=== PATIENT | male | born 2000 | race Caucasian/White ===

== ENCOUNTER 2020-07-05 06:32 | Inpatient (IN) | payer OTHER, SELFPAY ==
[2020-07-05] VITALS (7 sets, daily range): BP systolic 120–139; BP diastolic 86–94; PULSE 48–112; RESP 16–18; TEMP 36.3–37.1; O2SAT 98–100; BMI 25.0
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
--- NOTE | 2020-07-05 06:55 | XRR_ITS ---
PROCEDURE INFORMATION: Exam: XR Chest, 1 View Exam date and time: 07/05/2020 7:17 AM Age: 19 years old Clinical indication: Cough and dyspnea; Additional info: Dyspnea/cough TECHNIQUE: Imaging protocol: XR of the chest Views: 1 view. COMPARISON: No relevant prior studies available. FINDINGS: Lungs: Unremarkable. No consolidation. Pleural space: Unremarkable. No pleural effusion. No pneumothorax. Heart/Mediastinum: Unremarkable. No cardiomegaly. Bones/joints: Unremarkable. XR/XR chest 1V portable [id number] IMPRESSION: No acute findings.
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
[2020-07-05] MEDS: LORazepam 2 mg/mL INJ 1 mL IM (07:40)
[2020-07-05 07:53] LABS: Basophils # 0.1 10^3/uL (0.0-0.1); Basophils % 0.3 %; Eosinophils % 0.1 %; Hematocrit 43.9 % (42.0-52.0); Hemoglobin 14.9 g/dL (11.7-16.6); Lymphocytes # 1.8 10^3/uL (1.5-6.5); Lymphocytes % 10.5 %; Mean Corpuscular HGB Conc 33.9 g/dL (30.0-36.0); Mean Corpuscular Hemoglobin 28.9 pg (28.0-34.0); Mean Corpuscular Volume 85.2 fL (80-94); Mean Platelet Volume 9.4 fL (7.4-10.4); Monocytes # 1.1 10^3/uL (0.2-0.9); Monocytes % 6.6 %; Neutrophils # 13.92 10^3/uL (1.8-8.0); Neutrophils % 81.7 %; Nucleated Red Blood Cells % 0 %; Platelet Count 316 10^3/cmm (130-400); Red Blood Count 5.15 10^6/uL (4.1-5.3); Red Cell Distribution Width 13.4 % (12.1-15.1); White Blood Count 17.1 10^3/uL (4.5-13.0)
[2020-07-05 08:20] LABS: Alanine Aminotransferase 18 U/L (0-41); Albumin Level 5.3 g/dL (3.5-5.2); Alkaline Phosphatase 81 IU/L (40-130); Anion Gap 26.9 (5-19); Aspartate Amino Transferase 23 U/L (0-40); Blood Urea Nitrogen 9 mg/dL (6-20); Calcium 10.1 mg/dL (8.5-10.5); Carbon Dioxide 19 mmol/L (22-29); Chloride 101 mmol/L (98-107); Globulin 2.8 g/dL (1.3-4.6); Glomerular Filtration Rate 173.6 mL/min (90-130); Glucose 85 mg/dL (65-115); Osmolality Calculated 294 mOsm/kg (285-295); Potassium 3.9 mmol/L (3.5-5.1); Sodium 143 mmol/L (136-145); Total Bilirubin 0.8 mg/dL (0.15-1.2); Total Protein 8.1 g/dL (6.6-8.7)
[2020-07-05 08:25] LABS: Acetaminophen < 5.0 ug/mL (10-30); Alcohol Level < 10 mg/dL (0-10); Salicylate < 0.3 mg/dL (3-10)
[2020-07-05 10:31] LABS: Add Urine Microscopic? NO
[2020-07-05 10:35] LABS: Bilirubin Urine Neg (Negative); Blood Urine Neg (Negative); Glucose Urine UA Norm (Normal); Ketones Urine 3+ (Negative); Leukocyte Esterase Urine Negative (Negative); Nitrate Urine Negative (Negative); Protein Urine Neg (Negative); Urine Appearance Clear (CLEAR); Urine Color Yellow (Yellow); Urobilinogen Urine Norm (Negative)
[2020-07-05 11:05] LABS: Amphetamines Screen Urine Negative (Negative); Barbiturates Screen Urine Negative (Negative); Benzodiazepines Screen Urine Negative (Negative); Cocaine Screen Urine Negative (Negative); Opiate Screen Urine Negative (Negative); PCP Screen Urine Negative (Negative); THC Screen Urine Positive (Negative)
--- NOTE | 2020-07-05 11:50 | PC.NURSE ---
INFLUENZA VACCINE GIVEN IM IN LEFT DELTOID LOT [id number] EXP 03/21/21
--- NOTE | 2020-07-05 13:21 | NPU.GN ---
Les did not attend group this afternoon.
--- NOTE | 2020-07-05 18:45 | PC.NURSE ---
PATIENT BEING INTRUSIVE, FOLLOWING A FEMALE PATIENT DOWN TO HER ROOM, FOR BIBLE STUDY, EASILY REDIRECTED OUT OF ROOM. ALSO NOTED BY PHYSICIAN TO BE PUTTING HIS HANDS ON OTHER MALE PATIENTS IN ATTEMPT TO MASSAGE THEM. TO BE MOVED TO A PRIVATE ROOM WHEN OPEN. WILL CONT TO MONITOR, SUPPORT AND REDIRECT NEEDED
--- NOTE | 2020-07-06 02:27 | PC.NURSE ---
Patient has been pacing the babin since around 1999. He refused PRN medications when offered ( three times ) throughout the evening / morning. Patient approached me stating I'm ready to go , I asked where, he answered for the lord to take me Patient has been gripping bible and mumbling to his self near continually. Patient was finally willing to take PRN Zyprexa and Vistaril.
[2020-07-06] MEDS: hyDROXYzine 25 mg Capsule 50 MG PO ×2 (02:37→22:23)
[2020-07-06] MEDS: OLANZapine 5 mg ODT PO ×2 (02:40→22:23)
--- NOTE | 2020-07-06 02:50 | PC.NURSE ---
Patient needed to be redirected to take a shower. He was not able to complete the activity without help. He is often unsure of where he is or what he needs to be doing. He prays often, paces the babin, and does not sleep. He received Visteril and Zyprexa Zydis this evening but it is not slowing him down at all.
[2020-07-06 06:00] VITALS: RESP 16
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
[2020-07-06 14:00] VITALS: BP 112/72; PULSE 63; RESP 18; TEMP 36.8; O2SAT 98
[2020-07-06] MEDS: LORazepam 2 mg/mL INJ 1 mL IM (16:00)
--- NOTE | 2020-07-06 16:01 | PC.NURSE ---
PRN ATIVAN 2 MG GIVEN PO PER PT C/O STATED ANXIETY. PT PACING UNIT, DIFFICULT TO BE REDIRECTED. PT ATTEMPTS TO GO INTO FEMALES ROOM, STAFF HAS TO REDIRECT OFTEN. PT TEARFUL IN ROOM TALKING ABOUT HIS FAMILY. WILL CONT TO MONITOR
[2020-07-06 22:00] VITALS: BP 150/109; PULSE 120; RESP 19; TEMP 37.1; O2SAT 97
[2020-07-06] MEDS: trazodone 50 mg Tablet PO (22:24)
[2020-07-07 06:00] VITALS: BP 150/109; PULSE 120; RESP 19; TEMP 37.1; O2SAT 97
[2020-07-07 06:12] VITALS: RESP 16
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
[2020-07-07] MEDS: ARIPiprazole 10 mg Tablet PO (12:50)
--- NOTE | 2020-07-07 13:06 | P.PN_ITS ---
Subjective NPU Subjective: Interval history: Les presented today with continued challenges with his psychosis. He continued to be very religiously preoccupied. Concepts of love, guilt forgiveness, and punishment are all very prevalent in his thinking. At one point during the day he fell intentionally but did not catch himself and smashed his face against the floor including his glasses which were already damaged that were broken. Initially significant concern for some event existed however he was clear that he fell and allowed himself to hit the ground without protection as punishment for his sense. Afterwards he was open to a trial of Abilify after we discussed the risks, benefits and alternatives and he appeared to understand and agreed to proceed as is documented in this note. Mental Status Exam MSE Comments: This is a well-nourished, well-developed, white male, in a hospital gown, with red hair and smith, with adequate grooming and eye contact. No abnormal movements, except for mild psychomotor retardation. Cooperative with exam in occasional or intermittent distress. Speech was decreased rate and volume, speaking very softly and, at times, intensely without clear indication of why. Mood described as sad; affect subdued and labile. Thought process, mostly organized. Thought content: patient denied any suicidal or homicidal ideation; he did endorse paranoia and significant hyper zoroastrianism delusions were noted; he endorsed auditory or visual hallucinations, but did not appear to be attending to internal stimuli. Attention and concentration appeared mostly intact, and memory was unreliable, but none were formally tested. He is alert and oriented times person and place. Insight and judgment are impaired. Impulse control is is impaired. 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 Continue current medication. Would encourage an antipsychotic, and will continue to offer. Encourage individual, group, and milieu therapy. Continue q-[address] minute checks for safety[address] CT of head for witnessed fall was unremarkable. Recommend sober living treatment at the highest level of care to which the patient is willing to commit. We will evaluate for appropriateness for discharge, given the 96-hour hold, but currently it looks like he may be someone that we need to do a 21-day hold for. Involuntary Hold Information 96 Hour Hold: 96 Hour Involuntary Admission: Yes 96 Hour Hold Ending Date: 07/11/20 96 Hour Hold Ending Time: 07:00 Attestations NPU Medical Necessity Statement*: Inpatient hospitalization is medically necessary and the clinically appropriate intervention, at this time. We will monitor medications and make changes as indicated. Likely length of stay is four to six days. Coding Level of Care Code Acute Slot Key Person for Carmen Lester
[2020-07-07 14:00] VITALS: BP 113/69; PULSE 95; RESP 20; TEMP 36.7; O2SAT 100
[2020-07-07] MEDS: trazodone 50 mg Tablet PO (21:21)
[2020-07-07] MEDS: hyDROXYzine 25 mg Capsule 50 MG PO (21:21)
[2020-07-07 21:22] VITALS: BP 134/82; PULSE 119; RESP 19; TEMP 37.1; O2SAT 98
--- NOTE | 2020-07-07 21:22 | PC.NURSE ---
PRN TRAZODONE & VISTARIL ADMINISTERED TRAZODONE 50MG PO & VISTARIL 50 MG PO PER PT REQUEST. WILL MONITOR FOR MEDICATION EFFECTIVENESS.
--- NOTE | 2020-07-07 21:25 | PC.NURSE ---
Addendum entered by Latonya Singh RN 07/07/20 22:21: Notified Dr. Hernandez, Called NPU Carton Filling Machine Operator Manolo Gastelum, and shift Typesetting Machine Operator/Tender Basia Thao, rescored patient fall risk outcome is 40. Staff appropriate for census of 14. senior sales manager is Edward this evening. completed fall paperwork and initiated an incident report. No visible patient injury. Original Note: Pt fell in the shower. No cuts or visible redness on his skin. Pt stated that he is not having pain anywhere but don't know why he fell. Floor was wet.
[2020-07-08] MEDS: OLANZapine 5 mg ODT PO ×2 (01:21→16:07)
[2020-07-08 06:00] VITALS: BP 151/92; PULSE 96; RESP 14; TEMP 36.7; O2SAT 100
[2020-07-08] MEDS: ARIPiprazole 10 mg Tablet PO (09:22)
[2020-07-08 14:00] VITALS: BP 131/72; PULSE 72; RESP 18; TEMP 36.7; O2SAT 96
--- NOTE | 2020-07-08 14:06 | P.PN_ITS ---
Subjective NPU Subjective: Interval history: Les presented today reporting that he is feeling better. However he continues to be quite engrossed in his spiritual thinking being moved to Sherine or tears very easily. He was continuing his impulsive behavior with attempts to get into the nursing station and escape the unit noted throughout the day. This is with a one-to-one sitter trying to dis tract him as well. Mental Status Exam MSE Comments: This is a well-nourished, well-developed, white male, in a hospital gown, with red hair and smith, with adequate grooming and eye contact. No abnormal movements, except for mild psychomotor retardation. Cooperative with exam in occasional or intermittent distress. Speech was decreased rate and volume, speaking very softly and, at times, intensely without clear indication of why. Mood described as OK; affect subdued and labile. Thought process, mostly organized. Thought content: patient denied any suicidal or homicidal ideation; he did endorse paranoia and significant hyper adventist delusions were noted; he endorsed auditory or visual hallucinations, but did not appear to be attending to internal stimuli. Attention and concentration appeared mostly intact, and memory was unreliable, but none were formally tested. He is alert and oriented times person and place. Insight and judgment are impaired. Impulse control is is impaired. Vitals/I&O/Wt Last Vital Signs Temp 99.0 F 07/08/20 21:46 Pulse 94 07/08/20 21:46 Resp 19 H 07/08/20 21:46 BP 128/86 07/08/20 21:46 Pulse Ox 98 07/08/20 21:46 Data NPU : 07/05/20 07:46 07/05/20 07:46 A&P Additional A&P Information (1) Suicidal behavior with attempted self-injury: (2) Acute psychosis: (3) Drug-induced psychotic disorder: (4) No significant past medical history: This is an almost 20 year old, white male, with clear hyper adventist psychosis, question of possible manic euphoria, who presents not interested in medication, not believing anything is wrong with him, on a 96-hour hold. Continue current medication. He tolerated the 10 mg of Abilify we will increase to 20 mg p.o. every morning tomorrow. Encourage individual, group, and milieu therapy. Continue q-15 minute checks for safety. CT of head for witnessed fall was unremarkable. Recommend sober living treatment at the highest level of care to which the patient is willing to commit. We will evaluate for appropriateness for discharge, given the 96-hour hold, but currently it looks like he may be someone that we need to do a 21-day hold for. Involuntary Hold Information 96 Hour Hold: 96 Hour Involuntary Admission: Yes 96 Hour Hold Ending Date: 07/11/20 96 Hour Hold Ending Time: 07:00 Attestations NPU Medical Necessity Statement*: Inpatient hospitalization is medically necessary and the clinically appropriate intervention, at this time. We will monitor medications and make changes as indicated. Likely length of stay is four to six days Coding Level of Care Code Acute Sleeve Presser Operator for Carmen Lester
--- NOTE | 2020-07-08 16:09 | PC.NURSE ---
PRN Zyprexa Zydis Patient becoming agitated when he is being redirected from entering other patients rooms. Given Zyprexa Zydis PO.
[2020-07-08] MEDS: hyDROXYzine 25 mg Capsule 50 MG PO (21:10)
[2020-07-08] MEDS: trazodone 50 mg Tablet PO (21:10)
--- NOTE | 2020-07-08 21:11 | PC.NURSE ---
PRN TRAZODONE & VISTARIL ADMINISTERED TRAZODONE 50MG PO & VISTARIL 50 MG PO PER PT REQUEST. WILL MONITOR FOR MEDICATION EFFECTIVENESS.
[2020-07-08 21:46] VITALS: BP 128/86; PULSE 94; RESP 19; TEMP 37.2; O2SAT 98
[2020-07-09 06:00] VITALS: BP 134/89; PULSE 86; RESP 15; TEMP 36.9; O2SAT 97
[2020-07-09] MEDS: ARIPiprazole 10 mg Tablet 20 MG PO (08:50)
[2020-07-09] MEDS: ziprasidone 20 mg/mL SDV 5 MG IM (10:13)
--- NOTE | 2020-07-09 10:14 | PC.NURSE ---
PRN GEODON Patient becoming aggressive when trying to redirect from going into nurses station. Given 5 mg GEODON IM.
--- NOTE | 2020-07-09 12:17 | PM.NPN ---
Subjective NPU Subjective: Interval history: Les presents today continuing to be hyper jehovah's witness and focused on repentance and being thankful and striving to be aware of the magnitude of his sinning. He continues to be on one-to-one with his falls this weekend. He denied any side effects to Abilify. We discussed the risks, benefits and alternatives of considering a possible increase tomorrow, and he understood and agreed that he did not in this note. He reported saying prayers of thankfulness in between bites at his meals. Mental Status Exam MSE Comments: This is a well-nourished, well-developed, white male, in a hospital gown, with red hair and smith, with adequate grooming and eye contact. No abnormal movements, except for mild psychomotor retardation. Cooperative with exam in occasional or intermittent distress. Speech was decreased rate and volume, speaking very softly and, at times, intensely without clear indication of why. Mood described as last; affect subdued and slightly less labile. Thought process, mostly organized. Thought content: patient denied any suicidal or homicidal ideation; he did endorse paranoia and significant hyper jehovah's witness delusions were noted; he endorsed auditory or visual hallucinations, but did not appear to be attending to internal stimuli. Attention and concentration appeared mostly intact, and memory was unreliable, but none were formally tested. He is alert and oriented times person and place. Insight and judgment are impaired. Impulse control is is impaired. Vitals/I&O/Wt Last Vital Signs Temp 98.3 F 07/09/20 22:00 Pulse 101 H 07/09/20 22:00 Resp 18 07/09/20 22:00 BP 143/62 07/09/20 22:00 Pulse Ox 98 07/09/20 22:00 Weight last 48 hrs Weight 72.575 kg Data NPU : 07/05/20 07:46 07/05/20 07:46 A&P Additional A&P Information (1) Suicidal behavior with attempted self-injury: (2) Acute psychosis: (3) Drug-induced psychotic disorder: (4) No significant past medical history: This is an almost 20 year old, white male, with clear hyper jehovah's witness psychosis, question of possible manic euphoria, who presents not interested in medication, not believing anything is wrong with him, on a 96-hour hold. Continue current medication. Except for Abilify 20 mg p.o. every morning Encourage individual, group, and milieu therapy. Continue q-15 minute checks for safety. CT of head for witnessed fall was unremarkable. Recommend sober living treatment at the highest level of care to which the patient is willing to commit. We will evaluate for appropriateness for discharge, given the 96-hour hold, but currently it looks like he may be someone that we need to do a 21-day hold for. Involuntary Hold Information 96 Hour Hold: 96 Hour Involuntary Admission: Yes 96 Hour Hold Ending Date: 07/11/20 96 Hour Hold Ending Time: 07:00 Attestations NPU Medical Necessity Statement*: Inpatient hospitalization is medically necessary and the clinically appropriate intervention, at this time. We will monitor medications and make changes as indicated. Likely length of stay is four to six days Coding Level of Care Code Acute Power Project Manager for Carmen Lester
[2020-07-09] MEDS: OLANZapine 5 mg ODT PO (13:56)
--- NOTE | 2020-07-09 13:57 | PC.NURSE ---
PRN Zyprexa Zydis Patient continues to be defiant about staying out of patients rooms and nurses desk. Given 5 mg Zyprexa Zydis PO.
[2020-07-09 14:00] VITALS: BP 128/87; PULSE 98; RESP 18; TEMP 36.5; O2SAT 100
[2020-07-09] MEDS: hyDROXYzine 25 mg Capsule 50 MG PO (21:04)
[2020-07-09] MEDS: trazodone 50 mg Tablet PO (21:04)
[2020-07-09 22:00] VITALS: BP 143/62; PULSE 101; RESP 18; TEMP 36.8; O2SAT 98
[2020-07-10] MEDS: haloperidol 5 mg Tablet PO (02:03)
[2020-07-10 06:00] VITALS: BP 150/88; PULSE 62; RESP 15; TEMP 36.7; O2SAT 98
[2020-07-10] MEDS: ARIPiprazole 10 mg Tablet 20 MG PO (08:37)
[2020-07-10 14:23] VITALS: BP 134/84; PULSE 71; RESP 18; TEMP 36.8; O2SAT 99
--- NOTE | 2020-07-10 17:22 | P.PN_ITS ---
Subjective NPU Subjective: Interval history: Les continues to have difficulties with impulse control. He seems to be less labile in his general interactions. Parents were present today and we discussed plan to start and the fact that they are going to make sure he has more support possibly going to stay with mom. We discussed the fact that this may allow us to discharge him a little earlier with that understanding. That being said we discussed a 21-day hold it was applied for today. He seemed have more peace on the unit with his parents presence. Mental Status Exam MSE Comments: This is a well-nourished, well-developed, white male, in a hospital gown, with red hair and smith, with adequate grooming and eye contact. No abnormal movements, except for mild psychomotor retardation. Cooperative with exam in occasional or intermittent distress. Speech was decreased rate and volume, speaking very softly. Mood described as a little better; affect subdued and slightly less labile. Thought process, mostly organized. Thought content: patient denied any suicidal or homicidal ideation; he did endorse paranoia and significant hyper lutheran delusions were noted; he endorsed auditory or visual hallucinations, but did not appear to be attending to internal stimuli. Attention and concentration appeared mostly intact, and memory was unreliable, but none were formally tested. He is alert and oriented times person and place. Insight and judgment are impaired, but slowly improving. Impulse control is is impaired. Vitals/I&O/Wt Last Vital Signs Temp 98.2 F 07/10/20 14:23 Pulse 71 07/10/20 14:23 Resp 18 07/10/20 14:23 BP 134/84 07/10/20 14:23 Pulse Ox 99 07/10/20 14:23 Weight last 48 hrs Weight 72.575 kg Data NPU : 07/05/20 07:46 07/05/20 07:46 A&P Additional A&P Information (1) Suicidal behavior with attempted self-injury: (2) Acute psychosis: (3) Drug-induced psychotic disorder: (4) No significant past medical history: This is an almost 20 year old, white male, with clear hyper lutheran psychosis, question of possible manic euphoria, who presents not interested in medication, not believing anything is wrong with him, on a 96-hour hold. Continue current medication. Encourage individual, group, and milieu therapy. Continue q-15 minute checks for safety. Recommend sober living treatment at the highest level of care to which the patient is willing to commit. 21-day paperwork filed. Involuntary Hold Information 96 Hour Hold: 96 Hour Involuntary Admission: Yes 96 Hour Hold Ending Date: 07/11/20 96 Hour Hold Ending Time: 07:00 Attestations NPU Medical Necessity Statement*: Inpatient hospitalization is medically necessary and the clinically appropriate intervention, at this time. We will monitor medications and make changes as indicated. Likely length of stay is 4-6 days Coding Level of Care Code Acute Curriculum Consultant for Carmen Lester
[2020-07-10 20:06] LABS: Magnesium 2.5 mg/dL (1.7-2.2); Thyroid Stimulating Hormone 1.28 uIU/mL (0.27-4.20)
[2020-07-10 20:26] LABS: Erythrocyte Sedimentation Rate 7 mm/hr (0-10)
[2020-07-10] MEDS: trazodone 50 mg Tablet PO (21:40)
[2020-07-10] MEDS: OLANZapine 5 mg ODT PO (21:40)
[2020-07-10] MEDS: hyDROXYzine 25 mg Capsule 50 MG PO (21:40)
[2020-07-10 22:00] VITALS: BP 120/80; PULSE 80; RESP 19; TEMP 36.4; O2SAT 99
[2020-07-11 06:00] VITALS: BP 118/81; PULSE 65; RESP 15; TEMP 36.6; O2SAT 98
[2020-07-11] MEDS: ARIPiprazole 10 mg Tablet 20 MG PO (07:46)
[2020-07-11 14:00] VITALS: BP 127/81; PULSE 87; RESP 18; TEMP 36.7; O2SAT 99
--- NOTE | 2020-07-11 15:36 | PM.NPN ---
Subjective NPU Subjective: Interval history: Les presents today continuing to show little to no insight into his behavior surrounding his hyper pentecostal delusional choices. He seems to be gaining some impulse control but continues to attempt to go out of doors when they open with no warning, try to get into the nursing station and continues to pray and strike prayer positions extremely frequently. He continues to take the medication. We discussed the risk benefits and alternatives of considering an additional antipsychotic and he understood and agreed to proceed as documented in his note. Mental Status Exam MSE Comments: This is a well-nourished, well-developed, white male, in a hospital gown, with red hair and smith, with adequate grooming and eye contact. No abnormal movements, except for mild psychomotor retardation. Cooperative with exam in occasional or intermittent distress. Speech was decreased rate and volume, speaking very softly. Mood described as better; affect subdued and less labile. Thought process, mostly organized. Thought content: patient denied any suicidal or homicidal ideation; he did endorse paranoia and significant hyper pentecostal delusions were noted; he endorsed auditory or visual hallucinations, but did not appear to be attending to internal stimuli. Attention and concentration appeared mostly intact, and memory was unreliable, but none were formally tested. He is alert and oriented times person and place. Insight and judgment are impaired, but slowly improving. Impulse control is is impaired. Vitals/I&O/Wt Last Vital Signs Temp 98.1 F 07/11/20 14:00 Pulse 87 07/11/20 14:00 Resp 18 07/11/20 21:26 BP 127/81 07/11/20 14:00 Pulse Ox 99 07/11/20 14:00 Data NPU : 07/05/20 07:46 07/05/20 07:46 A&P Additional A&P Information (1) Suicidal behavior with attempted self-injury: (2) Acute psychosis: (3) Drug-induced psychotic disorder: (4) No significant past medical history: This is an almost 20 year old, white male, with clear hyper pentecostal psychosis, question of possible manic euphoria, who presents not interested in medication, not believing anything is wrong with him, on a 96-hour hold. Continue current medication. We will consider lithium or Invega tomorrow. Encourage individual, group, and milieu therapy. Continue q-15 minute checks for safety. Recommend sober living treatment at the highest level of care to which the patient is willing to commit. 21-day hold hearing tomorrow. Involuntary Hold Information 96 Hour Hold: 96 Hour Involuntary Admission: Yes 96 Hour Hold Ending Date: 07/11/20 96 Hour Hold Ending Time: 07:00 Attestations NPU Medical Necessity Statement*: Inpatient hospitalization is medically necessary and the clinically appropriate intervention, at this time. We will monitor medications and make changes as indicated. Likely length of stay is 4-6 days Coding Level of Care Code Acute Casting House Laborer for Carmen Lester
[2020-07-11] MEDS: hyDROXYzine 25 mg Capsule 50 MG PO (20:30)
[2020-07-11] MEDS: haloperidol 5 mg Tablet PO (20:30)
[2020-07-11] MEDS: trazodone 50 mg Tablet PO (20:31)
[2020-07-11 21:26] VITALS: RESP 18
--- NOTE | 2020-07-11 23:47 | NUR.SHIFT ---
Pt is resting in his room at 1900. When assessed this evening, breath sounds/heart sounds normal. He did get up to eat a snack in the dayroom. He returned to his room this evening. He is less intrusive, easier to direct, and seems to be better today than last week when I last saw him. pt reports [facility] telling him to do better , get the help you need. , He does not need a 1:1 sitter this evening. He has been pleasant and easy to talk to this evening. He is currently resting in his bed.
[2020-07-12 06:00] VITALS: BP 102/68; PULSE 97; RESP 16; TEMP 36.7; O2SAT 99
[2020-07-12] MEDS: ARIPiprazole 10 mg Tablet 20 MG PO (08:03)
[2020-07-12 14:00] VITALS: BP 126/79; PULSE 95; RESP 18; TEMP 37; O2SAT 99
--- NOTE | 2020-07-12 16:14 | P.PN_ITS ---
Subjective NPU Subjective: Interval history: Les presents today somewhat frustrated that he cannot go home but somewhat able to identify that there could be some benefit to staying in the hospital. His parents continue to visit daily. He feels and notes that he is doing better which is accurate and that he is showing some improvement, however he is showing limited insight into the seriousness of his delusions and the reality that this intense christian epiphany is a representation of his psychotic symptoms and not his normal thinking pattern. He is eating a little better and sleeping fine. Mental Status Exam MSE Comments: This is a well-nourished, well-developed, white male, in a hosp ital gown, with red hair and smith, with adequate grooming and eye contact. No abnormal movements, except for mild psychomotor retardation. Cooperative with exam in occasional or intermittent distress. Speech was decreased rate and volume, speaking very softly. Mood described as pretty good; affect subdued and less labile. Thought process, mostly organized. Thought content: patient denied any suicidal or homicidal ideation; he did endorse paranoia and significant hyper christian delusions were noted; he endorsed auditory or visual hallucinations, but did not appear to be attending to internal stimuli. Attention and concentration appeared mostly intact, and memory was unreliable, but none were formally tested. He is alert and oriented times person and place. Insight and judgment are impaired, but slowly improving. Impulse control is is impaired. Vitals/I&O/Wt Last Vital Signs Temp 98.3 F 07/12/20 20:53 Pulse 65 07/12/20 20:53 Resp 16 07/12/20 20:53 BP 131/86 07/12/20 20:53 Pulse Ox 99 07/12/20 20:53 Data NPU : 07/05/20 07:46 07/05/20 07:46 A&P Additional A&P Information (1) Suicidal behavior with attempted self-injury: (2) Acute psychosis: (3) Drug-induced psychotic disorder: (4) No significant past medical history: This is an almost 20 year old, white male, with clear hyper christian psychosis, question of possible manic euphoria, who presents not interested in medication, not believing anything is wrong with him, on a 96-hour hold. Continue current medication. We will start Invega 6 mg p.o. daily morning. Encourage individual, group, and milieu therapy. Continue q-15 minute checks for safety. Recommend sober living treatment at the highest level of care to which the patient is willing to commit. Les was placed on a 21-day hold. Involuntary Hold Information 96 Hour Hold: 96 Hour Involuntary Admission: Yes 96 Hour Hold Ending Date: 07/11/20 96 Hour Hold Ending Time: 07:00 Attestations NPU Medical Necessity Statement*: Inpatient hospitalization is medically necessary and the clinically appropriate intervention, at this time. We will monitor medications and make changes as indicated. Likely length of stay is 7-10 days. He is on a 21-day hold. Coding Level of Care Code Acute Mechanical Product Engineer for Carmen Lester
[2020-07-12 20:53] VITALS: BP 131/86; PULSE 65; RESP 16; TEMP 36.8; O2SAT 99
[2020-07-12] MEDS: hyDROXYzine 25 mg Capsule 50 MG PO (21:39)
[2020-07-12] MEDS: trazodone 50 mg Tablet PO (21:39)
--- NOTE | 2020-07-12 21:40 | PC.NURSE ---
trazodone/visteril Pt giveb 50mg PO Trazodone for sleep given 50mg PO Visteril for anxiety will continue to monitor
[2020-07-13 06:00] VITALS: BP 99/55; PULSE 85; RESP 16; TEMP 37.1; O2SAT 99
[2020-07-13] MEDS: ARIPiprazole 10 mg Tablet 20 MG PO (08:23)
[2020-07-13] MEDS: paliperidone ER 6 mg Tablet PO (08:23)
--- NOTE | 2020-07-13 11:58 | PM.NPN ---
Subjective NPU Subjective: Interval history: Les presents today continuing to be focused on discharge. Endorsing a desire to get out sooner rather than later. He continues to have jehovah's witness preoccupation. He is less peripheral but still making comments about saving souls and believing he was then placed in a certain room on the unit to save someone soul. Mental Status Exam MSE Comments: This is a well-nourished, well-developed, white male, in a hospital gown, with red hair and smith, with adequate grooming and eye contact. No abnormal movements, except for mild psychomotor retardation. Cooperative with exam in occasional distress. Speech was decreased rate and volume, speaking very softly. Mood described as pretty good; affect subdued and less labile. Thought process, mostly organized. Thought content: patient denied any suicidal or homicidal ideation; he did endorse paranoia and significant hyper jehovah's witness delusions were noted; he endorsed auditory or visual hallucinations, but did not appear to be attending to internal stimuli. Attention and concentration appeared mostly intact, and memory was unreliable, but none were formally tested. He is alert and oriented times person and place. Insight and judgment are impaired, but slowly improving. Impulse control is is impaired. Vitals/I&O/Wt Last Vital Signs Temp 98.8 F 07/13/20 06:00 Pulse 85 07/13/20 06:00 Resp 16 07/13/20 06:00 BP 99/55 07/13/20 06:00 Pulse Ox 99 07/13/20 06:00 Data NPU : 07/05/20 07:46 07/05/20 07:46 A&P Additional A&P Information (1) Suicidal behavior with attempted self-injury: (2) Acute psychosis: (3) Drug-induced psychotic disorder: (4) No significant past medical history: This is an almost 20 year old, white male, with clear hyper jehovah's witness psychosis, question of possible manic euphoria, who presents not interested in medication, not believing anything is wrong with him, on a 96-hour hold. Continue current medication. Encourage individual, group, and milieu therapy. Continue q-15 minute checks for safety. Recommend sober living treatment at the highest level of care to which the patient is willing to commit. Les was placed on a 21-day hold. Involuntary Hold Information 96 Hour Hold: 96 Hour Involuntary Admission: Yes 96 Hour Hold Ending Date: 07/11/20 96 Hour Hold Ending Time: 07:00 Attestations NPU Medical Necessity Statement*: Inpatient hospitalization is medically necessary and the clinically appropriate intervention, at this time. We will monitor medications and make changes as indicated. Likely length of stay is 7-10 days. He is on a 21-day hold. Coding Level of Care Code Acute Metal Mockup Maker for Carmen Lester
[2020-07-13 13:49] VITALS: BP 109/75; PULSE 72; RESP 18; TEMP 36.4; O2SAT 99
[2020-07-13 20:15] VITALS: BP 125/84; PULSE 103; RESP 17; TEMP 37.1
[2020-07-13] MEDS: trazodone 50 mg Tablet PO (21:55)
[2020-07-13] MEDS: hyDROXYzine 25 mg Capsule 50 MG PO (21:55)
[2020-07-14 06:00] VITALS: BP 128/82; PULSE 79; RESP 17; TEMP 36.6; O2SAT 99
[2020-07-14] MEDS: paliperidone ER 6 mg Tablet PO (08:18)
[2020-07-14] MEDS: ARIPiprazole 10 mg Tablet 20 MG PO (08:18)
[2020-07-14 14:00] VITALS: BP 107/77; PULSE 85; RESP 18; TEMP 36.3; O2SAT 99
--- NOTE | 2020-07-14 16:47 | P.PN_ITS ---
Subjective NPU Subjective: Interval history: Les presents today reporting that he feels much better. He does appear to be making some positive movements and his reduction in the intensity of his psychosis. He still is having strange behaviors like these intense deep inspiration expiration moments that he feels are cleansing to his spirit. He reports a desire to be a psychiatrist or someon e who helps treat people who go through episodes like himself. We discussed the likelihood that with continued improvement at this rate that he could possibly leave next week. Mental Status Exam MSE Comments: This is a well-nourished, well-developed, white male, in a hospital gown, with red hair and smith, with adequate grooming and eye contact. No abnormal movements, except for mild psychomotor retardation. Cooperative with exam in no acute distress. Speech was decreased rate and volume, speaking very softly. Mood described as great; affect less subdued and labile. Thought process, mostly organized. Thought content: patient denied any suicidal or homicidal ideation; he denied paranoia and less hyper pentecostal delusions were noted; he denied auditory or visual hallucinations. Attention and concentration appeared mostly intact, and memory was unreliable, but none were formally tested. He is alert and oriented times person and place. Insight and judgment are impaired, but slowly improving. Impulse control is is impaired. Vitals/I&O/Wt Last Vital Signs Temp 97.3 F L 07/14/20 14:00 Pulse 85 07/14/20 14:00 Resp 18 07/14/20 14:00 BP 107/77 07/14/20 14:00 Pulse Ox 99 07/14/20 14:00 Data NPU : 07/05/20 07:46 07/05/20 07:46 A&P Additional A&P Information (1) Suicidal behavior with attempted self-injury: (2) Acute psychosis: (3) Drug-induced psychotic disorder: (4) No significant past medical history: This is an almost 20 year old, white male, with clear hyper pentecostal psychosis, question of possible manic euphoria, who presents not interested in medication, not believing anything is wrong with him, on a 96-hour hold. Continue current medication. Encourage individual, group, and milieu therapy. Continue q-15 minute checks for safety. Recommend sober living treatment at the highest level of care to which the patient is willing to commit.. Involuntary Hold Information 96 Hour Hold: 96 Hour Involuntary Admission: Yes 96 Hour Hold Ending Date: 07/11/20 96 Hour Hold Ending Time: 07:00 Attestations NPU Medical Necessity Statement*: Inpatient hospitalization is medically necessary and the clinically appropriate intervention, at this time. We will monitor me dications and make changes as indicated. Likely length of stay is 6-9 days. He is on a 21-day hold. Coding Level of Care Code Acute Internal Grinder Tender for Carmen Lester
[2020-07-14 20:55] VITALS: BP 115/74; PULSE 99; RESP 16; TEMP 36.7; O2SAT 98
--- NOTE | 2020-07-14 21:54 | PC.NURSE ---
Pt wants to request to leave the unit. He also stated that he would like to refuse the treatment and be discharged from the hospital I explained that he is here for 21 day hold at this time and that the physician would determine when he was ready to leave the unit. He is less intrusive and resting at this time
[2020-07-15 06:00] VITALS: BP 126/83; PULSE 71; RESP 17; TEMP 36.4; O2SAT 97
[2020-07-15] MEDS: paliperidone ER 6 mg Tablet PO (08:30)
[2020-07-15] MEDS: ARIPiprazole 10 mg Tablet 20 MG PO (08:30)
--- NOTE | 2020-07-15 09:26 | PM.NPN ---
Subjective NPU Subjective: Interval history: Les presents today reporting that he is feeling less spiritually driven. He was very frustrated with the fact that his discussion about being better and desire for discharge did not intersect with the treatment team plan. We discussed speaking with his family about how they feel he is doing and how close to self he is appearing. He reports that he is doing well and feels the medication is helping. Mental Status Exam MSE Comments: This is a well-nourished, well-developed, white male, in a hospital gown, with red hair and smith, with adequate grooming and eye contact. No abnormal movements, except for mild psychomotor retardation. Cooperative with exam in no acute distress. Speech was more normal rate and volume. Mood described as very good; affect more euthymic. Thought process, mostly organized. Thought content: patient denied any suicidal or homicidal ideation; he denied paranoia and continued improvement in his delusional fixations were noted; he denied auditory or visual hallucinations. Attention and concentration appeared mostly intact, and memory was more reliable, but none were formally tested. He is alert and oriented x3. Insight and judgment are impaired, but improving. Impulse control is is impaired, but improving. Vitals/I&O/Wt Last Vital Signs Temp 97.6 F 07/15/20 06:00 Pulse 71 07/15/20 06:00 Resp 17 07/15/20 06:00 BP 126/83 07/15/20 06:00 Pulse Ox 97 07/15/20 06:00 Data NPU : 07/05/20 07:46 07/05/20 07:46 A&P Additional A&P Information (1) Suicidal behavior with attempted self-injury: (2) Acute psychosis: (3) Drug-induced psychotic disorder: (4) No significant past medical history: This is an almost 20 year old, white male, with clear hyper baptist psychosis, question of possible manic euphoria, who presents not interested in medication, not believing anything is wrong with him, on a 96-hour hold. Continue current medication. Encourage individual, group, and milieu therapy. Continue q-15 minute checks for safety. Recommend sober living treatment at the highest level of care to which the patient is willing to commit.. Involuntary Hold Information 96 Hour Hold: 96 Hour Involuntary Admission: Yes 96 Hour Hold Ending Date: 07/11/20 96 Hour Hold Ending Time: 07:00 Attestations NPU Medical Necessity Statement*: Inpatient hospitalization is medically necessary and the clinically appropriate intervention, at this time. We will monitor medications and make changes as indicated. Likely length of stay is 5-6 days. He is on a 21-day hold. Coding Level of Care Code Acute Director Compensation for Carmen Lester
[2020-07-15 14:00] VITALS: BP 123/81; PULSE 81; RESP 20; TEMP 37.1; O2SAT 99
[2020-07-15 22:00] VITALS: BP 130/78; PULSE 71; RESP 17; TEMP 36.8; O2SAT 99
[2020-07-16 06:00] VITALS: BP 129/72; PULSE 75; RESP 18; TEMP 36.7; O2SAT 99
[2020-07-16] MEDS: paliperidone ER 6 mg Tablet PO (08:48)
[2020-07-16] MEDS: ARIPiprazole 10 mg Tablet 20 MG PO (08:48)
--- NOTE | 2020-07-16 12:07 | P.PN_ITS ---
Subjective NPU Subjective: Interval history: Les presents today continuing to show improvements and reduction in his hyper nondenominational delusional thinking. He is less impulsive and more respectful of personal space and personal thinking. We discussed the treatment team working with his parents tomorrow for discussion of discharge this week. He endorsed looking forward for discharge. Mental Status Exam MSE Comments: This is a well-nourished, well-developed, white male, in a hospital gown, with red hair and smith, with adequate grooming and eye contact. No abnormal movements, except for mild psychomotor retardation. Cooperative with exam in no acute distress. Speech was more normal rate and volume. Mood described as good; affect more euthymic. Thought process, mostly organized. Thought content: patient denied any suicidal or homicidal ideation; he denied paranoia and continued improvement in his delusional fixations were noted; he denied auditory or visual hallucinations. Attention and concentration appeared mostly intact, and memory was more reliable, but none were formally tested. He is alert and oriented x3. Insight and judgment are improving. Impulse control is is impaired, but improving. Vitals/I&O/Wt Last Vital Signs Temp 98.3 F 07/16/20 21:38 Pulse 90 07/16/20 21:38 Resp 17 07/16/20 21:38 BP 109/62 07/16/20 21:38 Pulse Ox 99 07/16/20 21:38 Weight last 48 hrs Weight 68.096 kg Data NPU : 07/05/20 07:46 07/05/20 07:46 A&P Additional A&P Information (1) Suicidal behavior with attempted self-injury: (2) Acute psychosis: (3) Drug-induced psychotic disorder: (4) No significant past medical history: This is an almost 20 year old, white male, with clear hyper nondenominational psychosis, question of possible manic euphoria, who presents not interested in medication, not believing anything is wrong with him, on a 96-hour hold. Continue current medication. Should consider IM Invega prior to discharge. Encourage individual, group, and milieu therapy. Continue q-15 minute checks for safety. Recommend sober living treatment at the highest level of care to which the patient is willing to commit.. Involuntary Hold Information 96 Hour Hold: 96 Hour Involuntary Admission: Yes 96 Hour Hold Ending Date: 07/11/20 96 Hour Hold Ending Time: 07:00 Attestations NPU 2 Medical Necessity Statement*: Inpatient hospitalization is medically necessary and the clinically appropriate intervention, at this time. We will monitor medic ations and make changes as indicated. Likely length of stay is 2-4 days. He is on a 21-day hold. Coding Level of Care Code Acute Solderer for Carmen Lester
[2020-07-16 13:48] VITALS: BP 127/83; PULSE 117; RESP 18; TEMP 36.7; O2SAT 100
[2020-07-16] MEDS: hyDROXYzine 25 mg Capsule 50 MG PO (20:54)
[2020-07-16] MEDS: OLANZapine 5 mg ODT PO (20:54)
[2020-07-16] MEDS: trazodone 50 mg Tablet PO (20:54)
[2020-07-16 21:38] VITALS: BP 109/62; PULSE 90; RESP 17; TEMP 36.8; O2SAT 99
[2020-07-17 06:00] VITALS: BP 93/60; PULSE 102; RESP 15; TEMP 36.4; O2SAT 98
[2020-07-17] MEDS: paliperidone ER 6 mg Tablet PO (07:56)
[2020-07-17] MEDS: ARIPiprazole 10 mg Tablet 20 MG PO (07:57)
[2020-07-17 13:33] VITALS: BP 119/74; PULSE 96; RESP 18; TEMP 37.2; O2SAT 99
--- NOTE | 2020-07-17 17:15 | PM.NPN ---
Subjective NPU Subjective: Interval history: The patient reports that he feels that he is thinking clearly, doing well, tolerating medications, and is questioning the possibility of discharge. He is intending to go live with his mother with the eventual goal of reuniting his family. Already, he sees that his father is returning from [place] and his parents will reunite and hopefully even get again. He intends to continue in school and would like to major in psychology because I always do wonder about these oddball thoughts. He continues to insist that he is free of auditory and visual hallucinations. He tacitly admits that he has some scientology preoccupation but it does not appear to be delusional. He wonders out loud whether he is all better now and whether he would continue to be healthy if he just stopped his medications. His parents were interviewed separately. They report that he had generally done well until his grandmother had a stroke. He was basically raised by his grandparents and they were his primary family unit. He did well academically in school. He was not involved in any group activities but he did have friends and was not a loner either. Mother coincides the date of his scientology preoccupation and regular marijuana use it to the time when his grandmother had her stroke. It is also noted that it was about that time that he began writing actively in a diary. We do not have access to that diary. Mental Status Exam MSE Comments: Mental Status Exam: The patient is alert interpersonally engaged male appearing approximately his stated age. Eye contact is good. He is believed to be a reliable informant to the best of his ability as information provided is internally consistent and consistent with that in the chart. Appearance: hygiene is fair; no gross neurological deficits., gait is unremarkable; AIMS=0 Speech: Speech is of normal rate and rhythm and easily understood. He answers in full sentences and answers are pertinent to the questions asked. Thought processes: Thought processes are abstract though occasionally idiosyncratic. Judgment is adequate for safety. Associations: Generally intact though he does seem to connect events that have no obvious connection and engage in magical thinking such as the complete reunification of his family. Psychotic processes: There is no indication of guarding or paranoia. There is no attention to the internal stimuli. Auditory and visual hallucinations are denied. Judgment: Insight is good. Problem solving skills are adequate for safety. Orientation: The patient is oriented to person, place time and situation. Memory: no deficits noted in immediate, intermediate, or remote spheres. Attention: The patient is alert and interpersonally engaged. Language: Verbalizations are coherent. Fund of knowledge: Fund of knowledge is adequate. Affect/Mood: Affect is consistent with a mildly depressed mood. pt denies suicidal ideation Affective range is appropriate. Psychosis: perception unimpaired except through cognitive distortion; reality testing intact. Cognition: Patient Appearance: Appropriate Level of Consciousness: Awake and Disoriented Patient Cognition Impaired: Yes (admitted to PD to substance use) Ability to Follow Directions: Fair Patient Orientation (long list): Person and Name Comprehension Ability: No Impairment Hallucination Type: None Delusion Description: Not Present Thought Process: Appropriate Affect: Affect Description: Appropriate Behavior: Patient Behavior: Appropriate and Cooperative Speech Pattern: Appropriate and Clear Vitals/I&O/Wt Last Vital Signs Temp 98.9 F 07/17/20 13:33 Pulse 96 07/17/20 13:33 Resp 18 07/17/20 13:33 BP 119/74 07/17/20 13:33 Pulse Ox 99 07/17/20 13:33 Weight last 48 hrs Weight 68.096 kg Data NPU : 07/05/20 07:46 07/05/20 07:46 A&P Assessment and plan (1) Suicidal behavior with attempted self-injury: Status: Resolved (2) Acute psychosis: Status: Chronic (3) Drug-induced psychotic disorder: Status: Acute (4) No significant past medical history: Status: Acute Additional A&P Information (1) Suicidal behavior with attempted self-injury: (2) Acute psychosis: (3) Drug-induced psychotic disorder: (4) No significant past medical history: This is an almost 20 year old, white male, with clear hyper scientology psychosis, question of possible manic euphoria, who presents not interested in medication, not believing anything is wrong with him, on a 96-hour hold. Continue current medication. Should consider IM Invega prior to discharge. Hospital day #13: Patient is stable on current medications.The patient reports that he feels that he is thinking clearly, doing well, tolerating medications, and is questioning the possibility of discharge. He is intending to go live with his mother with the eventual goal of reuniting his family. Already, he sees that his father is returning from [place] and his parents will reunite and hopefully even get again. He intends to continue in school and would like to major in psychology because I always do wonder about these oddball thoughts. He continues to insist that he is free of auditory and visual hallucinations. He tacitly admits that he has some scientology preoccupation but it does not appear to be delusional. He wonders out loud whether he is all better now and whether he would continue to be healthy if he just stopped his medications. His parents were interviewed separately. They report that he had generally done well until his grandmother had a stroke. He was basically raised by his grandparents and they were his primary family unit. He did well academically in school. He was not involved in any group activities but he did have friends and was not a loner either. Mother coincides the date of his scientology preoccupation and regular marijuana use it to the time when his grandmother had her stroke. It is also noted that it was about that time that he began writing actively in a diary. We do not have access to that diary. Please see mental status exam for this date. Plan: Decrease Abilify to 10 mg daily. Goal is to increase efficacy of Invega by removing antagonist properties of Abilify on the dopamine receptor and also reducing side effects to the Abilify. Encourage individual, group, and milieu therapy. Continue q-15 minute checks for safety. Recommend sober living treatment at the highest level of care to which the patient is willing to commit.. Involuntary Hold Information 96 Hour Hold: 96 Hour Involuntary Admission: Yes 96 Hour Hold Ending Date: 07/11/20 96 Hour Hold Ending Time: 07:00 Attestations NPU Medical Necessity Statement*: Patient will remain in the hospital another 2-4 nights for assessment of medication efficacy and tolerability. Coding Level of Care Code Acute Pulp Mill Supervisor for Carmen Lester Diagnoses Suicidal behavior with attempted self-injury [id number] Acute psychosis F23 Drug-induced psychotic disorder F19.959 No significant past medical history
[2020-07-17 21:39] VITALS: BP 137/92; PULSE 91; RESP 18; TEMP 36.5; O2SAT 98
[2020-07-18] MEDS: hyDROXYzine 25 mg Capsule 50 MG PO (01:36)
[2020-07-18] MEDS: trazodone 50 mg Tablet PO (01:36)
[2020-07-18] MEDS: OLANZapine 5 mg ODT PO (01:36)
[2020-07-18 06:00] VITALS: BP 128/48; PULSE 67; RESP 17; TEMP 36.7; O2SAT 97
[2020-07-18] MEDS: paliperidone ER 6 mg Tablet PO (07:53)
[2020-07-18] MEDS: ARIPiprazole 10 mg Tablet PO (07:53)
[2020-07-18 09:54] VITALS: BP 128/48; PULSE 67; RESP 17; TEMP 36.7; O2SAT 97
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
== END 2020-07-18 13:23 | disposition home or self-care (01) | DRG 885 ==
LOC: ER 09:38 → NP 10:29
PROVIDERS: Family Medicine; Admitting Provider Psychiatry & Neurology Psychiatry; PCP Nurse Practitioner Family; Visit Provider Psychiatry & Neurology Psychiatry
DX: F23 Brief psychotic disorder (principal); F12.959 Cannabis use, unspecified with psychotic disorder, unspecified; M54.5 Low back pain; T14.91XA Suicide attempt, initial encounter
CPT/HCPCS: 12345; 36415; 51701; 70450; 71045; 72040; 72072; 72100; 80053; 80306; 80307; 81003; 83735; 84443; 85025; 85651; 90471; 90686; 96372; 99284; J2060; J3486